=== PATIENT | male | born 1995 | race Caucasian/White ===

== ENCOUNTER 2017-03-29 06:12 | Emergency (ER) | payer OTHER ==
[2017-03-29] MEDS ORDERED: KETOROLAC 30 MG/ML 1 ML VIAL IVP STA ×2 (07:19→08:16)
[2017-03-29] MEDS ORDERED: SODIUM CHLORIDE 0.9% 1,000 ML IV STA ×3 (07:19→09:26)
--- NOTE | 2017-03-29 07:22 | ED ---
Abdominal Pain HPI - General Chief Complaint: Abdominal Pain Stated Complaint: Side Pain Time Seen by Provider: 03/29/17 07:00 Source: patient, RN notes reviewed Mode of arrival: ambulatory Limitations: no limitations - History of Present Illness Initial Comments: This is a 21-year-old male with a benign past medical history who states he had the onset 2 days ago of some left flank and lower abdominal pain with some nausea and vomiting. This did seem to resolve until earlier this morning and did again recur sharp pain nausea vomiting left flank radiating down toward the left lower quadrant abdomen. Sweats no fevers or chills noted hematuria that he states he did have orange colored urine 2 days ago. He does have some difficulty starting his urine stream. No prior history of kidney stones or abdominal surgeries or family history of kidney stones. No constipation diarrhea or other symptoms to report. MD Complaint: abdominal pain, flank pain - Related Data Previous Rx's Medication Instructions Recorded Hydrocodone/Acetaminophen [[place] 1 each PO Q6HR PRN #20 tab 03/29/17 5-325] Ibuprofen 800 mg PO Q6HR PRN #20 tablet 03/29/17 Tamsulosin HCl [Flomax] 0.4 mg PO DAILY #7 cap 03/29/17 Allergies Allergy/AdvReac Type Severity Reaction Status Date / Time No Known Allergies Allergy Verified 03/29/17 07:48 Review of Systems ROS Statement: Those systems with pertinent positive or pertinent negative responses have been documented in the HPI. ROS Other: All systems not noted in ROS Statement are negative. Past Medical History Past Medical History: No Reported History History of Any Multi-Drug Resistant Organisms: None Reported Past Surgical History: No Surgical Hx Reported Past Psychological History: No Psychological Hx Reported Smoking Status: Current every day smoker Past Alcohol Use History: None Reported Past Drug Use History: None Reported General Exam - General Exam Comments Initial Comments: This is a well-developed well-nourished awake alert oriented 3 male Limitations: no limitations General appearance: alert, anxious, in distress Head exam: Present: atraumatic, normocephalic, normal inspection Eye exam: Present: normal appearance, PERRL, EOMI. Absent: scleral icterus, conjunctival injection, periorbital swelling ENT exam: Present: normal exam, mucous membranes moist Neck exam: Present: normal inspection. Absent: tenderness, meningismus, lymphadenopathy Respiratory exam: Present: normal lung sounds bilaterally. Absent: respiratory distress, wheezes, rales, rhonchi, stridor Cardiovascular Exam: Present: regular rate, normal rhythm, normal heart sounds. Absent: systolic murmur, diastolic murmur, rubs, gallop, clicks GI/Abdominal exam: Present: soft, normal bowel sounds. Absent: distended, tenderness, guarding, rebound, rigid Rectal exam: Present: deferred exam: Absent: testicular tenderness Extremities exam: Present: normal inspection, full ROM, normal capillary refill. Absent: tenderness, pedal edema, joint swelling, calf tenderness Back exam: Present: normal inspection, full ROM. Absent: CVA tenderness (R), CVA tenderness (L) Neurological exam: Present: alert, oriented X3, CN II-XII intact Psychiatric exam: Present: normal affect, normal mood Skin exam: Present: warm, intact, normal color, diaphoretic. Absent: rash Course Vital Signs 03/29/17 03/29/17 03/29/17 06:17 08:46 09:32 Temperature 97.0 F L Pulse Rate 88 74 73 Respiratory 97 H 14 14 Rate Blood Pressure 162/91 98/52 137/73 O2 Sat by Pulse 96 97 98 Oximetry Medical Decision Making - Medical Decision Making The patient is finally getting relief of most of the pain I did discuss findings with him and his he will be discharged on appropriate medication. - Lab Data Result diagrams: 03/29/17 06:45 03/29/17 06:45 Lab Results 03/29/17 03/29/17 03/29/17 Range/Units 06:33 06:45 06:45 WBC 7.5 (3.8-10.6) k/uL RBC 4.83 (4.30-5.90) m/uL Hgb 15.2 (13.0-17.5) gm/dL Hct 45.3 (39.0-53.0) % MCV 93.8 (80.0-100.0) fL MCH 31.5 (25.0-35.0) pg MCHC 33.6 (31.0-37.0) g/dL RDW 13.8 (11.5-15.5) % Plt Count 235 (150-450) k/uL Neutrophils % 59 % Lymphocytes % 27 % Monocytes % 7 % Eosinophils % 3 % Basophils % 1 % Neutrophils # 4.4 (1.3-7.7) k/uL Lymphocytes # 2.0 (1.0-4.8) k/uL Monocytes # 0.5 (0-1.0) k/uL Eosinophils # 0.2 (0-0.7) k/uL Basophils # 0.1 (0-0.2) k/uL Sodium 145 (137-145) mmol/L Potassium 4.5 (3.5-5.1) mmol/L Chloride 108 H (98-107) mmol/L Carbon Dioxide 22 (22-30) mmol/L Anion Gap 15 mmol/L BUN 11 (9-20) mg/dL Creatinine 0.95 (0.66-1.25) mg/dL Est GFR (MDRD) Af Amer >60 (>60 ml/min/1.73 sqM) Est GFR (MDRD) Non-Af >60 (>60 ml/min/1.73 sqM) Glucose 102 H (74-99) mg/dL Calcium 10.0 (8.4-10.2) mg/dL Total Bilirubin 0.5 (0.2-1.3) mg/dL AST 49 (17-59) U/L ALT 84 H (21-72) U/L Alkaline Phosphatase 62 (38-126) U/L Total Protein 8.0 (6.3-8.2) g/dL Albumin 5.0 (3.5-5.0) g/dL Amylase 68 (30-110) U/L Lipase 108 (23-300) U/L Urine Color Yellow Urine Appearance Cloudy (Clear) Urine pH 5.5 (5.0-8.0) Ur Specific [place] 1.031 (1.001-1.035) Urine Protein 1+ H (Negative) Urine Glucose (UA) Negative (Negative) Urine Ketones Trace H (Negative) Urine Blood Large H (Negative) Urine Nitrite Negative (Negative) Urine Bilirubin Negative (Negative) Urine Urobilinogen 3.0 (<2.0) mg/dL Ur Leukocyte Esterase Negative (Negative) Urine RBC 69 H (0-5) /hpf Urine WBC 6 H (0-5) /hpf Calcium Oxalate Crystal Moderate H (None) /hpf Urine Bacteria Rare H (None) /hpf Hyaline Casts 3 H (0-2) /lpf Urine Mucus Occasional H (None) /hpf Urine Sperm Rare (None) /hpf - Radiology Data Radiology results: report reviewed (I did review the imaging and report or is evidence of a calcification in 2-3 mm in the left ureter.), image reviewed Disposition Clinical Impression: Kidney stone on left side, Renal colic on left side Disposition: HOME SELF-CARE Condition: Good Instructions: Renal Colic (ED), Kidney Stones (ED), Flank Pain (ED), How to Strain Your Urine (ED) Prescriptions: Hydrocodone/Acetaminophen [[place] 5-325] 1 each PO Q6HR PRN #20 tab PRN Reason: Pain Ibuprofen 800 mg PO Q6HR PRN #20 tablet PRN Reason: Pain Tamsulosin HCl [Flomax] 0.4 mg PO DAILY #7 cap Referrals: None,Stated [Primary Care Provider] - 1-2 days
[2017-03-29 07:47] LABS: Basophils # (A) 0.1 k/uL (0-0.2); Basophils % (A) 1 %; CH 32.5; CHCM 34.8; Eosinophils # (A) 0.2 k/uL (0-0.7); Eosinophils % (A) 3 %; HCT 45.3 % (39.0-53.0); HDW 2.69; HGB 15.2 gm/dL (13.0-17.5); Luc # (Auto) 0.24; Luc % (Auto) 3; Lymphocytes % (A) 27 %; MCH 31.5 pg (25.0-35.0); MCHC 33.6 g/dL (31.0-37.0); MCV 93.8 fL (80.0-100.0); Mean Platelet Volume 7.7; Monocytes # (A) 0.5 k/uL (0-1.0); Monocytes % (A) 7 %; Neutrophils # (A) 4.4 k/uL (1.3-7.7); Neutrophils % (A) 59 %; RBC 4.83 m/uL (4.30-5.90); RDW 13.8 % (11.5-15.5); WBC 7.5 k/uL (3.8-10.6); WBC (Perox) 7.47
[2017-03-29 08:03] LABS: ALT 84 U/L (21-72); AST 49 U/L (17-59); Alkaline Phosphatase 62 U/L (38-126); Amylase 68 U/L (30-110); Anion Gap 15 mmol/L; Blood Urea Nitrogen 11 mg/dL (9-20); Carbon Dioxide 22 mmol/L (22-30); Chloride 108 mmol/L (98-107); Glucose 102 mg/dL (74-99); Non-African American GFR(MDRD) >60 (>60 ml/min/1.73 sqM); Potassium 4.5 mmol/L (3.5-5.1); Sodium 145 mmol/L (137-145); Total Bilirubin 0.5 mg/dL (0.2-1.3)
--- NOTE | 2017-03-29 08:08 | XR ---
EXAMINATION TYPE: XR KUB DATE OF EXAM: 03/29/2017 CLINICAL DATA: 21-year-old male with left flank and abdominal pain, [facility] COMPARISON: None FINDINGS: Lung bases are clear. No evidence for free intraperitoneal air. No dilated small bowel or air-fluid levels. Scattered air and stool seen throughout the colon extendi ng distally into the rectum. Mild stool within the right hemicolon. No suspicious calcifications identified. IMPRESSION: No evidence of bowel obstruction or free intraperitoneal air.
[2017-03-29 08:22] LABS: Appearance,Urine Cloudy (Clear); Bacteria,Urine Rare /hpf; Bilirubin,Urine Negative (Negative); Calcium Oxalate Crystals,Urine Moderate /hpf; Glucose,Urine (UA) Negative (Negative); Ketones,Urine Trace (Negative); Leukocyte Esterase,Urine Negative (Negative); Mucus,Urine Occasional /hpf; Nitrite,Urine Negative (Negative); PH, Urine 5.5 (5.0-8.0); Particle Count 12774; Protein,Urine 1+ (Negative); RBC,Urine 69 /hpf (0-5); Specific Gravity,Urine 1.031 (1.001-1.035); Sperm,Urine Rare /hpf; UA Billing (MACRO vs. MICRO) MICRO; WBC,Urine 6 /hpf (0-5)
--- NOTE | 2017-03-29 09:13 | CT ---
EXAMINATION TYPE: CT abdomen pelvis wo con DATE OF EXAM: 03/29/2017 COMPARISON: Plain film 03/29/2017 HISTORY: Right sided back pain CT DLP: 2099.3 mGycm Automated exposure control for dose reduction was used. TECHNIQUE: Helical acquisition of images from the lung bases through the pelvis. FINDINGS: Lack of intravenous contrast could compromise sensitivity. LUNG BASES: No significant abnormality is appreciated. AORTA: No significant abnormality is appreciataed. LIVER/GB: No significant abnormality is appreciated. PANCREAS: No significant abnormality is seen. SPLEEN: Enlarged. ADRENALS: No significant abnormality is seen. KIDNEYS: There is mild left-sided hydronephrosis, hydroureter. The distal aspect of the left ureter j ust proximal to the ureterovesical junction there is a calculus present measuring approximately 2 to 3 mm in size. Right kidney is normal. REPRODUCTIVE ORGANS: No significant abnormality is seen. URINARY BLADDER: No significant abnormality is seen. BOWEL: No significant abnormality is seen. FREE AIR: No Free Air is visible. ASCITES: None visible. PELVIC ADENOPATHY: None visualized. RETROPERITONEAL ADENOPATHY: No Retroperitoneal Adenopathy visible. OSSEOUS STRUCTURES: No significant abnormality is seen. IMPRESSION: SMALL LEFT DISTAL URETERAL CALCULUS DESCRIBED
[2017-03-29] MEDS ORDERED: HYDROmorphone 1 MG/ML 1 ML SYRINGE IVP STA (09:26)
[2017-03-29] MEDS ORDERED: TAMSULOSIN 0.4 MG CAP.ER.24H PO STA (09:26)
[2017-03-29 10:38] VITALS: BP 129/79; PULSE 61; RESP 18; TEMP 98
== END 2017-03-29 10:43 | disposition home or self-care (01) ==
LOC: EC 06:12
DX: N20.0 Calculus of kidney (principal); N23 Unspecified renal colic; R61 Generalized hyperhidrosis; R93.422 Abnormal radiologic findings on diagnostic imaging of left kidney; F17.200 Nicotine dependence, unspecified, uncomplicated
CPT/HCPCS: 99284 ×2; 96374 ×2; 96375; 96376 ×2; 96361 ×4; 36415; 80053; 82150; 83690; 85025; 81001; 74000; 74176; J1885; J1170

== ENCOUNTER 2017-05-03 23:29 | Emergency (ER) | payer OTHER ==
[2017-05-03 23:42] VITALS: BP 166/83; PULSE 95; RESP 18; TEMP 97.7
[2017-05-04] MEDS ORDERED: KETOROLAC 30 MG/ML 1 ML VIAL IVP STA
[2017-05-04] MEDS ORDERED: SODIUM CHLORIDE 0.9% 1,000 ML IV ONE
[2017-05-04] MEDS ORDERED: TAMSULOSIN 0.4 MG CAP.ER.24H PO STA
[2017-05-04 00:28] LABS: Basophils # (A) 0.1 k/uL (0-0.2); Basophils % (A) 1 %; CH 30.9; CHCM 34.1; Eosinophils # (A) 0.2 k/uL (0-0.7); Eosinophils % (A) 2 %; HCT 40.4 % (39.0-53.0); HDW 2.67; HGB 13.6 gm/dL (13.0-17.5); Luc # (Auto) 0.26; Luc % (Auto) 3; Lymphocytes % (A) 20 %; MCH 30.5 pg (25.0-35.0); MCHC 33.5 g/dL (31.0-37.0); MCV 91.1 fL (80.0-100.0); Mean Platelet Volume 7.7; Monocytes # (A) 0.8 k/uL (0-1.0); Monocytes % (A) 8 %; Neutrophils # (A) 6.6 k/uL (1.3-7.7); Neutrophils % (A) 66 %; RBC 4.44 m/uL (4.30-5.90); WBC (Perox) 10.11
[2017-05-04 00:33] LABS: Appearance,Urine Clear (Clear); Bilirubin,Urine Negative (Negative); Glucose,Urine (UA) Negative (Negative); Ketones,Urine Trace (Negative); Leukocyte Esterase,Urine Negative (Negative); Mucus,Urine Few /hpf; Nitrite,Urine Negative (Negative); PH, Urine 5.5 (5.0-8.0); Particle Count 3297; Protein,Urine 1+ (Negative); RBC,Urine 2 /hpf (0-5); Specific Gravity,Urine 1.031 (1.001-1.035); UA Billing (MACRO vs. MICRO) MICRO; WBC,Urine 4 /hpf (0-5)
[2017-05-04 00:41] LABS: Anion Gap 11 mmol/L; Blood Urea Nitrogen 17 mg/dL (9-20); Carbon Dioxide 23 mmol/L (22-30); Chloride 104 mmol/L (98-107); Glucose 85 mg/dL (74-99); Non-African American GFR(MDRD) >60 (>60 ml/min/1.73 sqM); Potassium 4.1 mmol/L (3.5-5.1); Sodium 138 mmol/L (137-145)
--- NOTE | 2017-05-04 01:07 | ED ---
Abdominal Pain HPI - General Chief Complaint: Abdominal Pain Stated Complaint: Back Pain Time Seen by Provider: 05/03/17 23:51 Source: patient Mode of arrival: ambulatory Limitations: no limitations - History of Present Illness Initial Comments: 21-year-old male patient presents to the emergency department today for evaluation of left flank pain. Patient states that he was diagnosed with a kidney stone in early March. Patient states that he does have intermittent pain to the left flank since then. He states that this current episode started approximately one-hour prior to arrival here. He states that the pain is sharp in nature and severe. He states this pain is similar to the pain he had when diagnosed with the kidney stone. He states that he has been urinating without difficulty and denies any hematuria. He denies any nausea or vomiting with this. Patient denies any recent rash, fever, chills, shortness breath, chest pain, diarrhea, constipation, numbness, tingling, dizziness, weakness, dysuria, urinary urgency, urinary frequency, headache, visual changes, or any other complaints. She states she did complete the course of Flomax and pain medications given here in the department. He states that he has not followed up with urology because he thought those medications would improve his symptoms. - Related Data Previous Rx's Medication Instructions Recorded Hydrocodone/Acetaminophen [[place] 1 tab PO Q6HR PRN #15 tab 05/04/17 5-325] Ibuprofen [Motrin] 600 mg PO Q6HR PRN #20 tab 05/04/17 Tamsulosin HCl [Flomax] 0.4 mg PO DAILY #7 cap 05/04/17 Allergies Allergy/AdvReac Type Severity Reaction Status Date / Time No Known Allergies Allergy Verified 05/03/17 23:41 Review of Systems ROS Statement: Those systems with pertinent positive or pertinent negative responses have been documented in the HPI. ROS Other: All systems not noted in ROS Statement are negative. Past Medical History Past Medical History: No Reported History History of Any Multi-Drug Resistant Organisms: None Reported Past Surgical History: No Surgical Hx Reported Past Psychological History: No Psychological Hx Reported Smoking Status: Current every day smoker Past Alcohol Use History: None Reported Past Drug Use History: None Reported General Exam Limitations: no limitations General appearance: alert, in distress (In mild distress related to pain), other (Is a well-developed, well-nourished adult male patient in no acute distress. Vital signs upon presentation are temperature 97.7F, pulse 95, respirations 18, blood pressure 166/83, pulse ox 99% on room air.) Eye exam: Present: normal appearance, PERRL, EOMI. Absent: scleral icterus, conjunctival injection, periorbital swelling ENT exam: Present: normal exam, normal oropharynx, mucous membranes moist Respiratory exam: Present: normal lung sounds bilaterally. Absent: respiratory distress, wheezes, rales, rhonchi, stridor Cardiovascular Exam: Present: regular rate, normal rhythm, normal heart sounds. Absent: systolic murmur, diastolic murmur, rubs, gallop, clicks GI/Abdominal exam: Present: soft, normal bowel sounds. Absent: distended, tenderness, guarding, rebound, rigid Back exam: Present: normal inspection, CVA tenderness (L). Absent: CVA tenderness (R) Neurological exam: Present: alert, oriented X3, CN II-XII intact Psychiatric exam: Present: normal affect, normal mood Skin exam: Present: warm, intact, normal color, diaphoretic. Absent: rash Course Vital Signs 05/03/17 23:39 Temperature 97.7 F Pulse Rate 95 Respiratory 18 Rate Blood Pressure 166/83 O2 Sat by Pulse 99 Oximetry Medical Decision Making - Medical Decision Making 21-year-old male patient presents to the emergency department today for evaluation of left flank pain that started approximately one hour prior to arrival. Patient has been seen recently and diagnosed with a kidney stones but has not yet followed up with urology. Physical examination did reveal some mild left flank tenderness. Labs were reviewed and showed a white blood cell count of 10.0. BUN and creatinine are stable and within normal limits. Urinalysis shows 1+ protein, trace ketones, small amount of blood, and a few mucus. Patient will be discharged at this time with a prescription for Flomax, [place] for pain control, ibuprofen for pain control, and instructions to follow- up with urology. I did explain the importance of following up with urology and that if he is unable to pass his kidney stone they would be able to assist him with further intervention. He is instructed to return here immediately for any new, worsening, or concerning symptoms. He verbalizes understanding and agrees with this plan. - Lab Data Result diagrams: 05/04/17 00:17 05/04/17 00:17 Lab Results 05/04/17 05/04/17 05/04/17 Range/Units 00:17 00:17 00:17 WBC 10.0 (3.8-10.6) k/uL RBC 4.44 (4.30-5.90) m/uL Hgb 13.6 (13.0-17.5) gm/dL Hct 40.4 (39.0-53.0) % MCV 91.1 (80.0-100.0) fL MCH 30.5 (25.0-35.0) pg MCHC 33.5 (31.0-37.0) g/dL RDW 14.0 (11.5-15.5) % Plt Count 242 (150-450) k/uL Neutrophils % 66 % Lymphocytes % 20 % Monocytes % 8 % Eosinophils % 2 % Basophils % 1 % Neutrophils # 6.6 (1.3-7.7) k/uL Lymphocytes # 2.0 (1.0-4.8) k/uL Monocytes # 0.8 (0-1.0) k/uL Eosinophils # 0.2 (0-0.7) k/uL Basophils # 0.1 (0-0.2) k/uL Sodium 138 (137-145) mmol/L Potassium 4.1 (3.5-5.1) mmol/L Chloride 104 (98-107) mmol/L Carbon Dioxide 23 (22-30) mmol/L Anion Gap 11 mmol/L BUN 17 (9-20) mg/dL Creatinine 1.10 (0.66-1.25) mg/dL Est GFR (MDRD) Af Amer >60 (>60 ml/min/1.73 sqM) Est GFR (MDRD) Non-Af >60 (>60 ml/min/1.73 sqM) Glucose 85 (74-99) mg/dL Calcium 10.0 (8.4-10.2) mg/dL Urine Color Yellow Urine Appearance Clear (Clear) Urine pH 5.5 (5.0-8.0) Ur Specific [place] 1.031 (1.001-1.035) Urine Protein 1+ H (Negative) Urine Glucose (UA) Negative (Negative) Urine Ketones Trace H (Negative) Urine Blood Small H (Negative) Urine Nitrite Negative (Negative) Urine Bilirubin Negative (Negative) Urine Urobilinogen 3.0 (<2.0) mg/dL Ur Leukocyte Esterase Negative (Negative) Urine RBC 2 (0-5) /hpf Urine WBC 4 (0-5) /hpf Urine Mucus Few H (None) /hpf Disposition Clinical Impression: Flank pain Disposition: HOME SELF-CARE Condition: Good Instructions: Kidney Stones (ED), Flank Pain (ED) Additional Instructions: Take medications as directed. Follow-up with urology as directed. Return here immediately for any new, worsening, or concerning symptoms. Prescriptions: Hydrocodone/Acetaminophen [[place] 5-325] 1 tab PO Q6HR PRN #15 tab PRN Reason: Pain Ibuprofen [Motrin] 600 mg PO Q6HR PRN #20 tab PRN Reason: Pain Tamsulosin HCl [Flomax] 0.4 mg PO DAILY #7 cap Referrals: None,Stated [Primary Care Provider] - 1-2 days Josesito Bauman MD [STAFF PHYSICIAN] - 1-2 days Time of Disposition: 01:07
[2017-05-04] MEDS ORDERED: ACET/COD 300 MG/30 MG STARTER PACK 6 TAB BTL PO STA (01:11)
== END 2017-05-04 01:30 | disposition home or self-care (01) ==
LOC: EC 23:29
DX: R10.9 Unspecified abdominal pain (principal); M54.9 Dorsalgia, unspecified; F17.200 Nicotine dependence, unspecified, uncomplicated
CPT/HCPCS: 36415; 80048; 85025; 81001; 99284; 96374; 96361; J1885

== ENCOUNTER 2018-01-30 22:06 | Emergency (ER) | payer OTHER ==
[2018-01-30 22:22] VITALS: BP 161/85; PULSE 77; RESP 16; TEMP 98.2
[2018-01-30] MEDS ORDERED: KETOROLAC 30 MG/ML 1 ML VIAL IVP STA (23:01)
[2018-01-30] MEDS ORDERED: SODIUM CHLORIDE 0.9% 1,000 ML IV ONE (23:01)
--- NOTE | 2018-01-30 23:08 | ED ---
Abdominal Pain HPI - General Chief Complaint: Abdominal Pain Stated Complaint: Back/Abd pain Time Seen by Provider: 01/30/18 22:46 Source: patient Mode of arrival: ambulatory Limitations: no limitations - History of Present Illness Initial Comments: 22-year-old male patient presents to emergency department today for complaints of right flank and lower back pain as well as periumbilical abdominal pain. Patient states that pain symptoms started on Wednesday and have been worsening. Patient describes the pain in the right side of his back as sharp stabbing, and similar to when he had kidney stones in the past. Patient states he is also feeling a bulging in his umbilicus and does have occasional pain when he presses the area and when he stretches. Patient denies any difficulty with urination or bowel movements. Denies any hematuria, dysuria, urinary urgency, urinary frequency. Denies any fevers or chills with this. He is not nauseated and has not vomited.Patient denies any recent rash, shortness breath, chest pain , diarrhea, constipation, numbness, tingling, dizziness, weakness, headache, visual changes, or any other complaints. - Related Data Previous Rx's Medication Instructions Recorded Cyclobenzaprine [Flexeril] 10 mg PO TID #15 tab 01/31/18 Ibuprofen [Motrin] 600 mg PO Q8HR PRN #30 tab 01/31/18 Allergies Allergy/AdvReac Type Severity Reaction Status Date / Time No Known Allergies Allergy Verified 01/30/18 22:22 Review of Systems ROS Statement: Those systems with pertinent positive or pertinent negative responses have been documented in the HPI. ROS Other: All systems not noted in ROS Statement are negative. Past Medical History Past Medical History: No Reported History Additional Past Medical History / Comment(s): kidney stones History of Any Multi-Drug Resistant Organisms: None Reported Past Surgical History: No Surgical Hx Reported Past Psychological History: No Psychological Hx Reported Smoking Status: Current every day smoker Past Alcohol Use History: None Reported Past Drug Use History: None Reported General Exam Limitations: no limitations General appearance: alert, in no apparent distress, other (This is a well- developed, well-nourished adult male patient in no acute distress. Vital signs upon presentation are temperature 98.2F, pulse 77, respirations 16, blood pressure 161/85, pulse ox 99% on room air.) Eye exam: Present: normal appearance, PERRL, EOMI. Absent: scleral icterus, conjunctival injection, periorbital swelling ENT exam: Present: normal exam, normal oropharynx, mucous membranes moist Respiratory exam: Present: normal lung sounds bilaterally. Absent: respiratory distress, wheezes, rales, rhonchi, stridor Cardiovascular Exam: Present: regular rate, normal rhythm, normal heart sounds. Absent: systolic murmur, diastolic murmur, rubs, gallop, clicks GI/Abdominal exam: Present: soft, tenderness (Mild tenderness over the umbilicus ), normal bowel sounds, hernia (Small easily reducible umbilical hernia). Absent: distended, guarding, rebound, rigid Back exam: Present: normal inspection. Absent: tenderness, CVA tenderness (R), CVA tenderness (L), vertebral tenderness Neurological exam: Present: alert, oriented X3, CN II-XII intact Psychiatric exam: Present: normal affect, normal mood Skin exam: Present: warm, dry, intact, normal color. Absent: rash Course Vital Signs 01/30/18 22:20 Temperature 98.2 F Pulse Rate 77 Respiratory 16 Rate Blood Pressure 161/85 O2 Sat by Pulse 99 Oximetry Medical Decision Making - Medical Decision Making 22-year-old male patient presented to the emergency department today for complaints of right lower back pain and discomfort periumbilically. Physical examination did reveal a small umbilical hernia that was easily reducible. Patient had no flank tenderness. Labs are performed given patient's history of kidney stone, they're unremarkable is no blood in the urine. 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 We did discuss the possibility of musculoskeletal back pain as a cause for his symptoms. Be discharged with a prescription for anti-inflammatory pain medication as well as muscle relaxer. He is instructed to apply warm moist heat to the low back. He is instructed to perform gentle range of motion exercises. He is instructed to follow-up with surgery for further evaluation of the hernia and to follow-up with his primary care physician in one to 2 days. Return parameters discussed in detail. He verbalizes understanding and agrees with this plan. - Lab Data Result diagrams: 01/30/18 23:17 01/30/18 23:17 Lab Results 01/30/18 01/30/18 01/30/18 Range/Units 23:17 23:17 23:17 WBC 7.6 (3.8-10.6) k/uL RBC 4.43 (4.30-5.90) m/uL Hgb 13.6 (13.0-17.5) gm/dL Hct 40.2 (39.0-53.0) % MCV 90.7 (80.0-100.0) fL MCH 30.6 (25.0-35.0) pg MCHC 33.7 (31.0-37.0) g/dL RDW 13.0 (11.5-15.5) % Plt Count 203 (150-450) k/uL Neutrophils % 53 % Lymphocytes % 35 % Monocytes % 7 % Eosinophils % 3 % Basophils % 1 % Neutrophils # 4.0 (1.3-7.7) k/uL Lymphocytes # 2.6 (1.0-4.8) k/uL Monocytes # 0.5 (0-1.0) k/uL Eosinophils # 0.2 (0-0.7) k/uL Basophils # 0.1 (0-0.2) k/uL Sodium 142 (137-145) mmol/L Potassium 3.8 (3.5-5.1) mmol/L Chloride 110 H (98-107) mmol/L Carbon Dioxide 25 (22-30) mmol/L Anion Gap 7 mmol/L BUN 16 (9-20) mg/dL Creatinine 0.90 (0.66-1.25) mg/dL Est GFR (CKD-EPI)AfAm >90 (>60 ml/min/1.73 sqM) Est GFR (CKD-EPI)NonAf >90 (>60 ml/min/1.73 sqM) Glucose 92 (74-99) mg/dL Plasma Lactic Acid Panfil[place] 1.0 (0.7-2.0) mmol/L Calcium 9.6 (8.4-10.2) mg/dL Total Bilirubin 0.2 (0.2-1.3) mg/dL AST 33 (17-59) U/L ALT 62 (21-72) U/L Alkaline Phosphatase 61 (38-126) U/L Total Protein 6.9 (6.3-8.2) g/dL Albumin 4.3 (3.5-5.0) g/dL Urine Color Urine Appearance (Clear) Urine pH (5.0-8.0) Ur Specific [place] (1.001-1.035) Urine Protein (Negative) Urine Glucose (UA) (Negative) Urine Ketones (Negative) Urine Blood (Negative) Urine Nitrite (Negative) Urine Bilirubin (Negative) Urine Urobilinogen (<2.0) mg/dL Ur Leukocyte Esterase (Negative) 01/30/18 Range/Units 23:17 WBC (3.8-10.6) k/uL RBC (4.30-5.90) m/uL Hgb (13.0-17.5) gm/dL Hct (39.0-53.0) % MCV (80.0-100.0) fL MCH (25.0-35.0) pg MCHC (31.0-37.0) g/dL RDW (11.5-15.5) % Plt Count (150-450) k/uL Neutrophils % % Lymphocytes % % Monocytes % % Eosinophils % % Basophils % % Neutrophils # (1.3-7.7) k/uL Lymphocytes # (1.0-4.8) k/uL Monocytes # (0-1.0) k/uL Eosinophils # (0-0.7) k/uL Basophils # (0-0.2) k/uL Sodium (137-145) mmol/L Potassium (3.5-5.1) mmol/L Chloride (98-107) mmol/L Carbon Dioxide (22-30) mmol/L Anion Gap mmol/L BUN (9-20) mg/dL Creatinine (0.66-1.25) mg/dL Est GFR (CKD-EPI)AfAm (>60 ml/min/1.73 sqM) Est GFR (CKD-EPI)NonAf (>60 ml/min/1.73 sqM) Glucose (74-99) mg/dL Plasma Lactic Acid Panfilo (0.7-2.0) mmol/L Calcium (8.4-10.2) mg/dL Total Bilirubin (0.2-1.3) mg/dL AST (17-59) U/L ALT (21-72) U/L Alkaline Phosphatase (38-126) U/L Total Protein (6.3-8.2) g/dL Albumin (3.5-5.0) g/dL Urine Color Yellow Urine Appearance Clear (Clear) Urine pH 6.0 (5.0-8.0) Ur Specific [place] 1.022 (1.001-1.035) Urine Protein Negative (Negative) Urine Glucose (UA) Negative (Negative) Urine Ketones Negative (Negative) Urine Blood Negative (Negative) Urine Nitrite Negative (Negative) Urine Bilirubin Negative (Negative) Urine Urobilinogen <2.0 (<2.0) mg/dL Ur Leukocyte Esterase Negative (Negative) - Radiology Data Radiology results: report reviewed, image reviewed Two-view x-ray of the abdomen was obtained. There is no sign of intestinal obstruction or pneumoperitoneum. Fecal pattern is normal. There are no pathologic calcifications over the kidneys. Lung bases are clear. There is no evidence of a mass. Impression by Dr. Rosario shows nonacute abdomen no change. Disposition Clinical Impression: Umbilical hernia, Low back strain Disposition: HOME SELF-CARE Condition: Good Instructions: Umbilical Hernia (ED), Low Back Strain (ED), Lower Back Exercises (ED) Additional Instructions: Increase fluids. Follow-up with general surgery for further evaluation of the hernia. Take medications as directed for low back pain. Apply warm moist heat to the low back 20 minutes at a time at least 4 times per day. Follow-up with your primary care physician for recheck in 1-2 days. Return here immediately for any new, worsening, or concerning symptoms. Prescriptions: Cyclobenzaprine [Flexeril] 10 mg PO TID #15 tab Ibuprofen [Motrin] 600 mg PO Q8HR PRN #30 tab PRN Reason: Pain Is patient prescribed a controlled substance at d/c from ED?: No Referrals: Wasihngton Trujillo MD [Primary Care Provider] - 1-2 days Yash Johnson MD [STAFF PHYSICIAN] - 1-2 days Time of Disposition: 00:42
[2018-01-30 23:31] LABS: Appearance,Urine Clear (Clear); Bilirubin,Urine Negative (Negative); Blood,Urine Negative (Negative); Color,Urine Yellow; Glucose,Urine (UA) Negative (Negative); Ketones,Urine Negative (Negative); Leukocyte Esterase,Urine Negative (Negative); Nitrite,Urine Negative (Negative); Protein,Urine Negative (Negative); Specific Gravity,Urine 1.022 (1.001-1.035); Urobilinogen,Urine <2.0 mg/dL (<2.0)
[2018-01-30 23:35] LABS: Basophils # (A) 0.1 k/uL (0-0.2); Basophils % (A) 1 %; Eosinophils # (A) 0.2 k/uL (0-0.7); Eosinophils % (A) 3 %; HCT 40.2 % (39.0-53.0); HGB 13.6 gm/dL (13.0-17.5); Lymphocytes # (A) 2.6 k/uL (1.0-4.8); Lymphocytes % (A) 35 %; MCH 30.6 pg (25.0-35.0); MCHC 33.7 g/dL (31.0-37.0); MCV 90.7 fL (80.0-100.0); Mean Platelet Volume 7.3; Monocytes # (A) 0.5 k/uL (0-1.0); Monocytes % (A) 7 %; Neutrophils % (A) 53 %; Platelet Count 203 k/uL (150-450); RBC 4.43 m/uL (4.30-5.90); WBC 7.6 k/uL (3.8-10.6)
[2018-01-30 23:40] LABS: ALT 62 U/L (21-72); AST 33 U/L (17-59); Albumin 4.3 g/dL (3.5-5.0); Alkaline Phosphatase 61 U/L (38-126); Anion Gap 7 mmol/L; Blood Urea Nitrogen 16 mg/dL (9-20); Calcium 9.6 mg/dL (8.4-10.2); Carbon Dioxide 25 mmol/L (22-30); Chloride 110 mmol/L (98-107); Glucose 92 mg/dL (74-99); Potassium 3.8 mmol/L (3.5-5.1); Sodium 142 mmol/L (137-145); Total Bilirubin 0.2 mg/dL (0.2-1.3); Total Protein 6.9 g/dL (6.3-8.2)
--- NOTE | 2018-01-31 00:10 | XR ---
EXAMINATION TYPE: XR KUB DATE OF EXAM: 01/30/2018 COMPARISON: 04/17/2017 HISTORY: Kidney stone abdominal pain TECHNIQUE: 2 views upright FINDINGS: There is no sign of intestinal obstruction or pneumoperitoneum. Fecal pattern is normal. Th ere are no pathologic calcifications over the kidneys. Lung bases are clear. There is no evidence of a mass. IMPRESSION: Nonacute abdomen. No change.
[2018-01-31] MEDS ORDERED: ORPHENADRINE 30 MG/ML 2 ML VIAL IVP STA (00:48)
== END 2018-01-31 01:11 | disposition home or self-care (01) ==
LOC: EC 22:06
DX: S39.012A Strain of muscle, fascia and tendon of lower back, initial encounter (principal); K42.9 Umbilical hernia without obstruction or gangrene; F17.200 Nicotine dependence, unspecified, uncomplicated; X50.0XXA Overexertion from strenuous movement or load, initial encounter; Y92.69 Other specified industrial and construction area as the place of occurrence of the external cause
CPT/HCPCS: 36415; 80053; 83605; 85025; 81003; 74018; 99284; 96374; 96375; 96361; J2360; J1885

== ENCOUNTER → 2018-02-16 | Outpatient (CLI) | payer OTHER ==
--- NOTE | 2018-02-16 22:56 | CT ---
EXAMINATION TYPE: CT abdomen pelvis w con DATE OF EXAM: 02/16/2018 COMPARISON: 03/29/2017 HISTORY: 22-year-old male with pain, Umbilical hernia. TECHNIQUE: Contiguous axial scanning of the abdomen and pelvis following administration of 100 ml Iso elis 300 IV contrast. Delayed images through the kidneys and coronal/sagittal reconstructions perform ed. CT DLP: 1836 mGycm Automated exposure control for dose reduction was used. FINDINGS: Heart normal size without pericardial effusion. Lung bases clear without pleural effusion. No focal liver lesion or biliary ductal dilatation. Portal venous system is patent. Gallbladder, adrenal glands, kidneys, and pancreas appear within normal limits. The spleen is enlarged measuring 16.9 cm on coronal series. Borderline sized portacaval lymph node measuring 1.5 cm. Scattered nonenlarged mesenteric lymph nodes are present. No dilated small bowel, free fluid, or free air. Oral contrast has progressed to the rectum. Normal appendix. No significant stool burden and no peric olonic inflammatory change. Bladder not distended. No abnormal fluid collection in the pelvis or pelvic lymphadenopathy. No ventral abdominal wall or umbilical hernia is identified. Bones: No osseous destructive process. Degenerative disc disease within the lower thoracic spine note d, premature given patient's age. IMPRESSION: 1. NO VENTRAL ABDOMINAL WALL OR UMBILICAL HERNIA IDENTIFIED. 2. SPLENOMEGALY (16.9 CM), CLINICALLY CORRELATE. 3. 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 QUERY ANY SMOKING HISTORY.
== END | disposition home or self-care (01) ==
LOC: RADCTMAIN 16:35
PROVIDERS: ATTEND Surgery
DX: R16.1 Splenomegaly, not elsewhere classified (principal); K42.9 Umbilical hernia without obstruction or gangrene
CPT/HCPCS: 74177; Q9967

== ENCOUNTER 2018-11-14 23:38 | Emergency (ER) | payer OTHER ==
[2018-11-14 23:44] VITALS: BP 157/97; PULSE 100; RESP 20; TEMP 98.4
[2018-11-14] MEDS ORDERED: LIDOCAINE 1%-EPI 1:100,000 20 ML VIAL SQ ONE (23:45)
[2018-11-14] MEDS ORDERED: DIPH,PERTUS(ACELL)TETVAC-LF 0.5 ML VIAL IM ONE (23:56)
--- NOTE | 2018-11-15 00:01 | ED ---
General Adult HPI - General Chief complaint: Wound/Laceration Stated complaint: Arm Laceration Time Seen by Provider: 11/14/18 23:45 Source: patient Mode of arrival: ambulatory Limitations: no limitations - History of Present Illness Initial comments: The patient is a 22 year old male who presents with a CC of a laceration to the right arm. he states this happened about 35 minutes ago while in his garage trying to find things to throw on the fire. the states he tried to pull something down off the wall and accidentally pulled a single pane window down and his arm went through it. the patient states he drank about 6 beers tonight. he denies any other injury. pain is mild, bleeding controlled. NV intact. - Related Data Previous Rx's Medication Instructions Recorded Cyclobenzaprine [Flexeril] 10 mg PO TID #15 tab 01/31/18 Ibuprofen [Motrin] 600 mg PO Q8HR PRN #30 tab 01/31/18 Allergies Allergy/AdvReac Type Severity Reaction Status Date / Time No Known Allergies Allergy Verified 11/14/18 23:44 Review of Systems ROS Statement: Those systems with pertinent positive or pertinent negative responses have been documented in the HPI. ROS Other: All systems not noted in ROS Statement are negative. Skin: Reports: as per HPI Past Medical History Past Medical History: No Reported History Additional Past Medical History / Comment(s): kidney stones History of Any Multi-Drug Resistant Organisms: None Reported Past Surgical History: No Surgical Hx Reported Past Psychological History: No Psychological Hx Reported Smoking Status: Current every day smoker Past Alcohol Use History: Occasional Past Drug Use History: None Reported General Exam Limitations: no limitations General appearance: alert, in no apparent distress Head exam: Present: atraumatic, normocephalic Eye exam: Present: normal appearance ENT exam: Present: normal exam Neck exam: Present: normal inspection Respiratory exam: Present: normal lung sounds bilaterally. Absent: respiratory distress, wheezes Cardiovascular Exam: Present: regular rate, normal rhythm GI/Abdominal exam: Present: soft. Absent: distended, tenderness Rectal exam: Present: deferred Extremities exam: Present: normal inspection, other (patient has a 5-6 cm laceration on the volar aspect of the right forearm. the proximal portion is linear though there is a stellate laceration distally. bleeding controlled. bilateral limbs are NV intact. ) Back exam: Present: normal inspection Neurological exam: Present: alert, oriented X3, CN II-XII intact, normal gait Psychiatric exam: Present: normal affect, normal mood Skin exam: Present: warm, dry, other (laceration as described in extremities exam. ) Course Vital Signs 11/14/18 23:40 Temperature 98.4 F Pulse Rate 100 Respiratory 20 Rate Blood Pressure 157/97 O2 Sat by Pulse 99 Oximetry Procedures - Laceration Laceration #1 Consent Obtained: verbal consent Indication: laceration Site: upper extremity Description: linear, stellate Depth: simple, single layer Anesthetic Used: lidocaine 1%, with epi Anesthesia Technique: local infiltration Pre-repair: wound explored, irrigated extensively Type of Sutures: nylon Size of Sutures: 5-0 Number of Sutures: 17 Technique: simple, interrupted Patient Tolerated Procedure: well, no complications Medical Decision Making - Medical Decision Making Patient presents with a laceration. on initial evaluation, VS stable, patient in no distress. NV intact, bleeding controlled. patients laceration was repaired per the procedure note, he was sent for xray to rule out foreign body, tetanus status updated. Patient started have sutures removed in 5-7 days. Do not soak or submerge in water. Wash is normal. Follow with primary care 1-2 days, return to ED if symptoms worsen or change. Disposition Clinical Impression: Laceration Disposition: HOME SELF-CARE Condition: Good Is patient prescribed a controlled substance at d/c from ED?: No Referrals: Washington Trujillo MD [Primary Care Provider] - 1-2 days
--- NOTE | 2018-11-15 00:36 | XR ---
EXAM: XR Right Forearm, 2 Views CLINICAL HISTORY: ITS.REASON XR Reason: Pain TECHNIQUE: Frontal and lateral views of the right forearm. COMPARISON: No relevant prior studies available. FINDINGS: Bones/joints: No acute fracture. No dislocation. Soft tissues: Unremarkable. IMPRESSION: No acute findings.
== END 2018-11-15 01:12 | disposition home or self-care (01) ==
LOC: EC 23:38
DX: S51.811A Laceration without foreign body of right forearm, initial encounter (principal); Z23 Encounter for immunization; F17.200 Nicotine dependence, unspecified, uncomplicated; W25.XXXA Contact with sharp glass, initial encounter; Y92.015 Private garage of single-family (private) house as the place of occurrence of the external cause
CPT/HCPCS: 90471; 90715; 99283

== ENCOUNTER 2020-11-01 23:00 | Emergency (ER) | payer OTHER ==
[2020-11-01 23:21] VITALS: BP 161/93; PULSE 74; RESP 18; TEMP 97.8
[2020-11-01] MEDS ORDERED: HYDROmorphone 0.5 MG/0.5 ML SYRINGE IM STA (23:52)
[2020-11-01] MEDS ORDERED: diazePAM 2 MG TAB PO STA (23:52)
--- NOTE | 2020-11-02 00:08 | XR ---
EXAMINATION TYPE: XR lumbar spine 2 or 3V DATE OF EXAM: 11/02/2020 COMPARISON: NONE HISTORY: Back pain TECHNIQUE: 3 views FINDINGS: Vertebra have normal alignment. Posterior elements are intact. Disc spaces are normal. Ther e is no compression fracture. Sacroiliac joints are normal. IMPRESSION: Normal lumbar spine exam.
[2020-11-02 00:42] LABS: Appearance,Urine Clear (Clear); Bilirubin,Urine Negative (Negative); Blood,Urine Negative (Negative); Color,Urine Yellow; Glucose,Urine (UA) Negative (Negative); Ketones,Urine Negative (Negative); Leukocyte Esterase,Urine Negative (Negative); Nitrite,Urine Negative (Negative); Protein,Urine Trace (Negative); Specific Gravity,Urine 1.036 (1.001-1.035)
--- NOTE | 2020-11-02 01:09 | ED ---
Back Pain HPI - General Chief Complaint: Back Pain/Injury Stated Complaint: Back Pain Time Seen by Provider: 11/01/20 23:48 Source: patient, family Limitations: no limitations - History of Present Illness Initial Comments: [age] male presenting to the emergency department today for chief complaint of low back pain. Patient states the past 5 days he has had low back pain. Patie nt states that he can hardly twist or move. 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 Patient states he gets of history of kidney stones denies hematuria he denies any nausea vomiting or flank pain. Patient sates is localized to the lumbar spine he denies radiation. Patient denies any fevers chills general malaise. Patient denies any weakness or sensation deficits of the lower extremities he denies a loss of bowel bladder control. He denies any urinary retention fevers or IV drug use remaining review systems negative upon arrival patient appears well and nontoxic distress no history of falls - Related Data Previous Rx's Medication Instructions Recorded Cyclobenzaprine [Flexeril] 10 mg PO TID #15 tab 01/31/18 Ibuprofen [Motrin] 600 mg PO Q8HR PRN #30 tab 01/31/18 Cyclobenzaprine [Flexeril] 10 mg PO TID PRN 7 Days #21 tab 11/02/20 HYDROcodone/APAP 5-325MG [[place] 1 tab PO Q6HR PRN 3 Days #12 tab 11/02/20 5-325] Allergies Allergy/AdvReac Type Severity Reaction Status Date / Time No Known Allergies Allergy Verified 11/01/20 23:18 Review of Systems ROS Statement: Those systems with pertinent positive or pertinent negative responses have been documented in the HPI. ROS Other: All systems not noted in ROS Statement are negative. Past Medical History Past Medical History: No Reported History Additional Past Medical History / Comment(s): kidney stones History of Any Multi-Drug Resistant Organisms: None Reported Past Surgical History: No Surgical Hx Reported Past Psychological History: No Psychological Hx Reported Smoking Status: Current every day smoker Past Alcohol Use History: Occasional Past Drug Use History: None Reported General Exam - General Exam Comments Initial Comments: General: The patient is awake and alert, in no distress Eye: Pupils are equal, round and reactive to light, extra-ocular movements are intact. No nystagmus. There is normal conjunctiva bilaterally. No signs of icterus. Ears, nose, mouth and throat: There are moist mucous membranes and no oral lesions. Neck: The neck is supple, there is no tenderness or JVD. Cardiovascular: There is a regular rate and rhythm. No murmur, rub or gallop is appreciated. Respiratory: Lungs are clear to auscultation, respirations are non-labored, breath sounds are equal. No wheezes, stridor, rales, or rhonchi. Gastrointestinal: Soft, non-distended, non-tender abdomen without masses or organomegaly noted. There is no rebound or guarding present. Musculoskeletal: Lumbar paraspinal but no midline tenderness the tenderness is to the left of the lumbar spine. Normal ROM, no tenderness of the LE b/l. Strength 5/5 of the LE b/l. Sensation intact of the LE b/l. Radial and DP pulses equal bilaterally 2+. Neurological: A&O x 3. CN II-XII intact grossly, There are no obvious motor or sensory deficits. Coordination appears grossly intact. Speech is normal. Skin: Skin is warm and dry and no rashes or lesions are noted. Psychiatric: Cooperative, appropriate mood & affect, normal judgment. Limitations: no limitations Course Vital Signs 11/01/20 23:19 Temperature 97.8 F Pulse Rate 74 Respiratory 18 Rate Blood Pressure 161/93 O2 Sat by Pulse 100 Oximetry Medical Decision Making - Medical Decision Making 24yo male presenting for low back pain. Denies any falls or trauma. No alarming features is reproducible to touch and twisting. Appears musculoskeletal. Urinalysis no hematuria. Patient's pain significant improved with Valium as well as Dilaudid. [facility] be [facility] and is to follow-up with primary care provider return parameters were discussed the patient was discharged appearing well neurovascularly intact - Lab Data Lab Results 11/02/20 Range/Units 00:34 Urine Color Yellow Urine Appearance Clear (Clear) Urine pH 6.0 (5.0-8.0) Ur Specific [place] 1.036 H (1.001-1.035) Urine Protein Trace H (Negative) Urine Glucose (UA) Negative (Negative) Urine Ketones Negative (Negative) Urine Blood Negative (Negative) Urine Nitrite Negative (Negative) Urine Bilirubin Negative (Negative) Urine Urobilinogen 2.0 (<2.0) mg/dL Ur Leukocyte Esterase Negative (Negative) Disposition Clinical Impression: Low back strain Disposition: HOME SELF-CARE Condition: Good Instructions (If sedation given, give patient instructions): Acute Low Back Pain (ED) Additional Instructions: Please use medication as discussed. Please follow-up with family doctor in the next 2 days. Please return to emergency room if the symptoms increase or worsen or for any other concerns. Prescriptions: Cyclobenzaprine [Flexeril] 10 mg PO TID PRN 7 Days #21 tab PRN Reason: Muscle Spasm HYDROcodone/APAP 5-325MG [[place] 5-325] 1 tab PO Q6HR PRN 3 Days #12 tab PRN Reason: Severe Pain Is patient prescribed a controlled substance at d/c from ED?: Yes When asked, does pt state using other controlled substances?: No If prescribed controlled substance>3 days was MAPS reviewed?: Prescribed <3 Days If opioid is for acute pain is fill amount 7 days or less?: Yes If Rx opioid, was Start Talking consent form obtained?: Yes Referrals: Washington Trujillo MD [Primary Care Provider] - 1-2 days Time of Disposition: 01:09
== END 2020-11-02 01:16 | disposition home or self-care (01) ==
LOC: EC 23:00
DX: M54.5 Low back pain (principal); F17.200 Nicotine dependence, unspecified, uncomplicated; Z87.442 Personal history of urinary calculi
CPT/HCPCS: 81003; 72100; 99283; 96372; J1170